=== PATIENT | male | born 1990 | race African-American/Black ===

== ENCOUNTER → 2016-11-22 | Outpatient (CLI) | payer OTHER ==
--- NOTE | 2016-11-22 12:25 | USB ---
Reason for exam: clinical finding. History: Family history of breast cancer in maternal aunt at age 35 and breast cancer in sister at age 24. Indicated problem(s): lump or thickening in the right breast. Physical Findings: Nurse Summary: 2cm lovable lump in the right breast retroareolar position, patient complains of right breast tendet lump x 1 month (nurse mm). US Breast Limited RT Right breast ultrasound demonstrates a 4.6cm irregular, hypoechoic to isoechoic lesion at the posterior nipple. This most likely represent asymmetric gynecomastia and clinical correlation can be made for possible causes. However, given the family history of breast cancer, surgical consultation is recommended to assess for any potential suspicious palpable abnormality. Left breast subareolar region scanned for comparison; no cystic or solid lesion seen. These results were verbally communicated with the patient and result sheet given to the patient on 11/22/16. ASSESSMENT: Probably benign, BI-RAD 3 RECOMMENDATION: Manage on a clinical basis with regard to possible gynecomastia. Surgical consultation of the right breast to discuss possible causes, assess for any clinically suspicious palpable areas given the family history of breast cancer, and to discuss any potential elective surgical treatment. Called Dr. Morillo with mammographic findings and has scheduled an appointment for the patient for 12/04/16 at 3:[address] Davila. PRELIMINARY REPORT CALLED AND FAXED TO DR. DAVILA ON 11/22/16 AT 300/TP. MTDD
== END | disposition home or self-care (01) ==
LOC: RADUSWWP 09:28
PROVIDERS: ATTEND Family Medicine
DX: N63 Unspecified lump in breast (principal)